=== PATIENT | male | born 1995 | race African-American/Black ===

== ENCOUNTER 2016-11-11 20:34 | Emergency (ER) | payer BC ==
[2016-11-11] MEDS ORDERED: ALBUTEROL SO4 2.5/IPRATROPIUM 0.5 INH SOL 3 ML VIAL.NEB. NEB ONE (20:37)
--- NOTE | 2016-11-11 20:37 | PDOC ---
[id number] No Limitations - History of Present Illness Initial Comments: 11/11/16 21:51 The patient is a 21 year old male with a significant past medical history of seasonal allergies, who presents to the ED with allergy onset for past few days. Patient complains of itchy eyes, SOB, congestion, and cough. He noted increasing shortness of breath today. He denies fever, chills, nausea, vomiting, diarrhea. <Devyn Vela - Last Filed: 11/11/16 21:57> <Evita Martinez - Last Filed: 11/14/16 02:58> - General Chief Complaint: Respiratory Stated Complaint: CANT BREATHE Time Seen by Provider: 11/11/16 20:36 Past History <Devyn Vela - Last Filed: 11/11/16 21:57> - Immunization History Td Vaccination: Yes Immunization Up to Date: Yes - Psycho/Social/Smoking Cessation Hx Suicidal Ideation: No Smoking Status: No Number of Cigarettes Smoked Daily: 0 <Evita Martinez - Last Filed: 11/14/16 02:58> - Past Medical History Allergies/Adverse Reactions: Allergies Allergy/AdvReac Type Severity Reaction Status Date / Time strawberry Allergy Verified 11/11/16 21:05 STRAWBERRIES Allergy Uncoded 10/13/11 19:42 Home Medications: Ambulatory Orders Albuterol Sulfate Inhaler - [Ventolin HFA Inhaler -] 1 - 2 inh PO Q4H #1 inhaler 11/11/16 Montelukast Na [Singulair -] 10 mg PO HS #14 tablet 11/11/16 Review of Systems - Review of Systems Able to Perform ROS?: Yes Comments:: 11/11/16 21:51 CONSTITUTIONAL: Absent: fever, chills, diaphoresis, generalized weakness, malaise, loss of appetite HEENT: Present: itchy eyes. Absent: rhinorrhea, nasal congestion, throat pain, throat swelling, difficulty swallowing, mouth swelling, ear pain, visual Changes CARDIOVASCULAR: Absent: chest pain, syncope, palpitations, irregular heart rate, lightheadedness , peripheral edema RESPIRATORY: Present: cough, SOB Absent: dyspnea with exertion, orthopnea, wheezing, stridor, hemoptysis GASTROINTESTINAL: Absent: abdominal pain, abdominal distension, nausea, vomiting, diarrhea, constipation, melena, hematochezia GENITOURINARY: Absent: dysuria, frequency, urgency, hesitancy, hematuria, flank pain, genital pain MUSCULOSKELETAL: Absent: myalgia, arthralgia, joint swelling SKIN: Absent: rash, itching, pallor HEMATOLOGIC/IMMUNOLOGIC: Absent: easy bleeding, easy bruising, lymphadenopathy, frequent infections ENDOCRINE: Absent: unexplained weight gain, unexplained weight loss, heat intolerance, cold intolerance NEUROLOGIC: Absent: headache, focal weakness or paresthesias, dizziness, unsteady gait, seizure, mental status changes, bladder or bowel incontinence PSYCHIATRIC: Absent: anxiety, depression, suicidal or homicidal ideation, hallucinations. <Devyn Vela - Last Filed: 11/11/16 21:57> *Physical Exam - Vital Signs Last Vital Signs Temp Pulse Resp BP Pulse Ox 100.9 F H 130 H 18 127/71 94 L 11/11/16 20:42 11/11/16 20:42 11/11/16 20:42 11/11/16 20:42 11/11/16 20:42 - Physical Exam Comments: 11/11/16 21:52 GENERAL: The patient is awake, alert, and fully oriented, in no acute distress. HEAD: Normal with no signs of trauma. EYES: Pupils equal, round and reactive to light, extraocular movements intact, sclera anicteric, conjunctiva clear with no pallor. ENT: Ears normal, nares patent, oropharynx clear without exudates. Moist mucous membranes. NECK: Normal range of motion, supple without lymphadenopathy, JVD, or masses. LUNGS: Bilateral Expiratory wheezing. HEART: Regular rate and rhythm, normal S1 and S2 without murmur or rub. ABDOMEN: Soft/nontender/nondistended. BS wnl. No guarding or rebound. No palpable masses. No hepatosplenomegaly. EXTREMITIES: Normal range of motion, no edema. No clubbing or cyanosis. No cords , erythema, or tenderness. NEUROLOGICAL: Cranial nerves II through XII grossly intact. Normal speech, normal gait. PSYCH: Normal mood, normal affect. SKIN: Warm, Dry, normal turgor, no rashes or lesions noted. <Devyn Vela - Last Filed: 11/11/16 21:57> ED Treatment Course - Medications Given in the ED: ED Medications Discontinued Medications Generic Name Dose Route Start Last Admin Trade Name Freq PRN Reason Stop Dose Admin Albuterol/Ipratropium 1 amp 11/11/16 20:37 11/11/16 20:46 Duoneb - NEB 11/11/16 20:38 1 amp ONCE ONE Administration <Devyn Vela - Last Filed: 11/11/16 21:57> Progress Note - Progress Note Progress Note: Documentation has been prepared under my direction and personally reviewed by me in its entirety. I attest that this documented accurately reflects all work, treatment, procedures and medical decision making performed by me. <Evita Martinez - Last Filed: 11/14/16 02:58> Medical Decision Making - Medical Decision Making Patient given Duoneb nebulizer treatment after bilateral wheezing heard on exam Repeat exam reveals clear lung sounds with good air exchange. Patient feels markedly better. The patient has been using only OTC antihistamines for his seasonal allergies. He had been seen by an ENT doctor several years ago who had prescribed a daily pill which was very effective. Neither the patient or his father can recall the name of the medication. 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 prescriptions for singulair, 10mg daily and albuterol inhaler to be used as needed q4hr will be sent to pharmacy Patient lives in [place] on [address] and [facility] doctor: referral info for Dr Raza will be given <Evita Martinez - Last Filed: 11/14/16 02:58> *DC/Admit/Observation/Transfer - Attestations Scribe Attestion: 11/11/16 21:53 Documentation prepared by Devyn Vela, acting as medical planner for Evita Martinez MD. <Devyn Vela - Last Filed: 11/11/16 21:57> <Evita Martinez - Last Filed: 11/14/16 02:58> Diagnosis at time of Disposition: Allergic bronchitis Qualifiers: Asthma severity: moderate persistent Asthma complication type: with acute exacerbation Qualified Code(s): J45.41 - Moderate persistent asthma with (acute ) exacerbation - Discharge Dispostion Disposition: HOME Condition at time of disposition: Stable - Prescriptions Prescriptions: Montelukast Na [Singulair -] 10 mg PO HS #14 tablet Albuterol Sulfate Inhaler - [Ventolin HFA Inhaler -] 1 - 2 inh PO Q4H #1 inhaler - Referrals Referrals: Cody Raza MD [Staff Physician] - Call tomorrow - Patient Instructions Printed Discharge Instructions: Leukotriene Inhibitors for Asthma and Allergies Additional Instructions: continue claritin daily Singulair 10mg daily albuterol 1-2 puffs every 4 hours as needed return to ER if you have persistent shortness of breath call Dr Raza office tomorrow to make followup appointment within 2-3 days
[2016-11-11 21:08] VITALS: BP 127/71; PULSE 130; TEMP 100.9; BMI 23.7
== END 2016-11-11 21:55 | disposition home or self-care (01) ==
LOC: FER 20:34
PROC: 3E0F7GC Introduction of Other Therapeutic Substance into Respiratory Tract, Via Natural or Artificial Opening (ICD-10-PCS; principal; 2016-11-11)
DX: J45.41 Moderate persistent asthma with (acute) exacerbation (principal); J30.2 Other seasonal allergic rhinitis
CPT/HCPCS: 99281-25

== ENCOUNTER → 2020-04-29 | Day surgery (SDC) | payer OTHER ==
[2020-04-28 11:32] VITALS: BMI 25.0
[~2020-04-29] MED LIST: ACETAMINOPHEN 325 MG TABLET (FP) PO PRN; AMPICILLIN SODIUM 2 GM VIAL ONE; BUPIVACAINE HCL/PF 0.25% (2.5MG/ML) 10 ML VIAL ONE; LACTATED RINGERS SOLUTION 1,000 ML IV SCH; LIDOCAINE HCL 1%, 10 MG/ML (20ML VIAL) NR ONE; LIDOCAINE HCL 1%, 10 MG/ML (20ML VIAL) ONE; MIDAZOLAM HCL 2 MG/2 ML SINGLE DOSE VIAL ONE; ONDANSETRON 4 MG/2 ML VIAL IVPUSH PRN; PROPOFOL 20 ML ONE; ceFAZolin 2 GRAM PREMIX BAG IVPB ONE; fentaNYL CITRATE 250 MCG/5 ML VIAL ONE; oxyCODONE HCL 5 MG TABLET PO PRN
--- OUTSIDE RECORDS SUMMARY | 2020-04-29 05:08 | XMS ---
:1995 Author Organization [facility] Support Name Relationship Address Phone [facility] Unavailable [address] [phone] [place] [address] SANYA COLVIN FATHER [address] [place] [address] Re-disclosure Warning The records that you are about to access may contain information from federally- assisted alcohol or drug abuse programs. If such information is present, then the following federally mandated warning applies: This information has been disclosed to you from records protected by federal confidentiality rules (42 CFR part 2). The federal rules prohibit you from making any further disclosure of this information unless further disclosure is expressly permitted by the written consent of the person to whom it pertains or as otherwise permitted by 42 CFR part 2. A general authorization for the release of medical or other information is NOT sufficient for this purpose. The Federal rules restrict any use of the information to criminally investigate or prosecute any alcohol or drug abuse patient.The records that you are about to access may contain highly sensitive health information, the redisclosure of which is protected by Article 27-F of the [facility] Public Health law. If you continue you may haveaccess to information: Regarding HIV / AIDS; Provided by facilities licensed or operated by the [facility] Office of Mental Health; or Provided by the [facility] Office for People With Developmental Disabilities. If such information is present, then the following [facility] mandated warning applies: This information has been disclosed to you from confidential records which are protected by state law. State law prohibits you from making any further disclosure of this information without the specific written consent of the person to whom it pertains, or as otherwise permitted by law. Any unauthorized further disclosure in violation of state law may result in a fine or alf sentence or both. A general authorization for the release of medical or other information is NOT sufficient authorization for further disclosure. Insurance Providers Payer name Policy type / Policy ID Covered Covered green party's Policy Plan Coverage type green party ID relationship to Pickett Information pickett UMR [id number] Results ID Date Data Source [id number] 04/24/2020 03:25:00 PM EDT [facility] Name Value Range Interpretation Description Data Sup porting Code Source(s) Document(s ) SARS [facility] coronavirus 2 RNA This lab was ordered by [facility] and reported by [facility]. Procedure
[2020-04-29 17:22] VITALS: TEMP 97.8
[2020-04-29 18:28] VITALS: BP 137/80; PULSE 91
--- NOTE | 2020-05-02 13:19 | OP ---
DATE OF OPERATION: 04/29/2020 PREOPERATIVE DIAGNOSIS: Hammertoe bilateral 4th toe. POSTOPERATIVE DIAGNOSIS: Hammertoe bilateral 4th toe. OPERATION: Proximal interphalangeal joint arthroplasty of 4th digit bilateral. ANESTHESIA: Local with IV sedation. SURGEON: Charli Davila DPM RESTAURANT ASSISTANT: Dr. Luciano Benson HEMOSTASIS: Pneumatic ankle tourniquet. ESTIMATED BLOOD LOSS: Minimal. MATERIALS: Nylon suture, fixation implant. PATHOLOGY: Bone. OPERATIVE PROCEDURE: Right: The patient was brought to the operating room and placed on the operating table in the supine position. A pneumatic ankle tourniquet was inflated on the patient's left and right ankles. Both feet were then scrubbed, prepped and draped in the usual aseptic manner. Direction brought to the right foot. Following IV sedation local anesthesia was obtained utilizing 5 mL of a 0.5% Marcaine plain. An Esmarch bandage was then utilized to exsanguinate the patient's right foot and the tourniquet was inflated. Attention was directed to the 4th digit where a 2 cm linear longitudinal incision was made over the dorsal aspect of the proximal interphalangeal joint of the digit. The incision was then deepened throughout the subcutaneous tissues with care to protect all neurovascular structures. All bleeders were cauterized and ligated. A transverse tenotomy and capsulotomy was performed to the proximal interphalangeal joint of the 4th digit of the right foot. The head of the proximal phalanx was then freed of its soft tissue attachment. Sagittal saw and double-action bone cutter were then to resect the head of the proximal phalanx. The double-action bone cutter was then used to resect the base of the middle phalanx which was also passed from the operating field. A shaving device was then used on the base of the middle phalanx and the head of the proximal phalanx ensuring a fit. A 0.045 inch K-wire was then driven into the head of the proximal phalanx and one 15-mm fixation implant was inserted into the head of the proximal phalanx. The initial K-wire fixation was then removed. A reamer device was then used to create a hole in the base of the middle phalanx. The proximal and middle phalanges were then connected, being held together with the fixation implant. The wounds were then flushed with copious amounts of sterile saline. Then the extensor tendon was reapproximated with 3-0 Vicryl. Skin was reapproximated with 4-0 nylon. Upon completion of the procedure a total of 2 to 3 mL of a 4:1 mixture of 0.5% mixture and Decadron was infiltrated around the surgical site. The incision was dressed with Betadine-soaked Adaptic and covered with sterile compressive dressing of 4 x 4's and Santo. The tourniquet was then deflated and immediate hyperemia returned to all digits. The foot was then Miguel Angel wrapped. Attention was then brought to the left foot. An Esmarch bandage was then utilized to exsanguinate the patient's left foot and the tourniquet was inflated. Attention was directed to the 4th digit where a 2 cm linear longitudinal incision was made over the dorsal aspect of the proximal interphalangeal joint of the digit. The incision was deepened throughout the subcutaneous tissues with care to retract all neurovascular structures. All bleeders were cauterized and ligated. A transverse tenotomy and capsulotomy was performed to the proximal interphalangeal joint of the 4th digit of the left foot. The head of the proximal phalanx was then freed of its soft tissue attachments. Sagittal saw and double-action bone cutter were then used to resect the head of the proximal phalanx. The double-action bone cutter was then used to resect the base of the middle phalanx which was then passed from the operating field. The phalanges were then smoothed of their rough edges with a bone rasp. A shaving device was then used on the base of the middle phalanx and the head of the proximal phalanx ensuring a fit. A 0.045 inch K-wire was then driven into the head of the proximal phalanx and one 16-mm fixation implant was inserted into the head of the proximal phalanx. The initial K-wire fixation was then removed. A reamer device was then used to create a hole in the base of the middle phalanx. The proximal and middle phalanges were then connected, being held together with fixation implant. The wounds were then flushed with copious amounts of sterile saline and the extensor tendon reapproximated with 3-0 Vicryl. Skin was reapproximated with 4-0 nylon. Upon completion of the procedure a total of 2 to 3 mL of a 4:1 mixture of 0.5% Marcaine and Decadron was infiltrated around the surgical site. The incision was dressed with Betadine-soaked Adaptic and covered with sterile compressive dressings of 4 x 4's and Santo. The tourniquet was then deflated and immediate hyperemia returned to all digits. The foot was then Miguel Angel wrapped. The patient tolerated the procedures well and was transferred to the recovery room with all vital signs stable and vascular status intact to the feet. Following postoperative monitoring the patient will be discharged and given instructions and prescriptions which were discussed prior to the surgery. Dr. Luciano Benson dictating for HERBERT Jauregui DPM /[id number]
--- NOTE | 2020-05-04 18:09 | PATH ---
Surgical Pathology Report Patient Name: SANYA COLVIN [facility]. Rec. #: [id number] /Age/Gender: 1995 (Age: 25) / M Account: [id number] Location: [facility] SURGICAL Taken: 04/29/2020 Received: 05/02/2020 Reported: 05/04/2020 Physicians: Charli Davila DPM Specimen(s) Received BONE, SOFT TISSUE, LEFT AND Clinical History Hammertoe Final Diagnosis BONE, SOFT TISSUE LEFT AND RIGHT, RESECTION: PORTIONS OF BONE WITH FATTY MARROW. NEGATIVE FOR MALIGNANCY. Electronically Signed Shannon Alcaraz M.D. Gross Description Received in formalin labeled "bone, soft tissue left and right," are 2 muller-yellow portions of bone measuring 1.1 x 0.5 x 0.4 cm and 1.1 x 0.6 x 0.5 cm. There is no soft tissue identified despite the indication on the requisition. Flight Attendant Inflight Services sections are submitted in one cassette, following decalcification. /05/02/2020 [facility]05/02/2020
== END | disposition home or self-care (01) ==
LOC: JASU-SURG 05:05
PROVIDERS: ATTEND Podiatrist Foot Surgery
PROC: 0SRP0JZ Replacement of Right Toe Phalangeal Joint with Synthetic Substitute, Open Approach (ICD-10-PCS; 2020-04-29)
PROC: 0SRP0JZ Replacement of Right Toe Phalangeal Joint with Synthetic Substitute, Open Approach (ICD-10-PCS; principal; 2020-04-29 14:30)
DX: M20.41 Other hammer toe(s) (acquired), right foot (principal); M20.42 Other hammer toe(s) (acquired), left foot
CPT/HCPCS: 88304-TC; 88311-TC; 94760